=== PATIENT | female | born 1955 | race Caucasian/White ===

== ENCOUNTER → 2016-12-31 | Day surgery (SDC) | payer OTHER, BC ==
--- NOTE | 2017-01-01 12:09 | PATH ---
Surgical Pathology Report Patient Name: VICKI BROOKS [facility]. Rec. #: [id number] /Age/Gender: 1955 (Age: 61) / F Account: [id number] Location: [facility] RADIOLOGY U Taken: 12/31/2016 Received: 12/31/2016 Reported: 01/01/2017 Physicians: Dex Nolasco M.D. Specimen(s) Received RIGHT BREAST BIOPSY 9 O'CLOCK Clinical History Newly diagnosed right breast cancer, suspicious enhancement 9:00 right Final Diagnosis RIGHT BREAST, 9:00, NEEDLE CORE BIOPSY: BENIGN BREAST TISSUE WITH FIBROCYSTIC CHANGES INCLUDING USUAL DUCTAL HYPERPLASIA, (UDH), COLUMNAR CELL CHANGE, STROMAL FIBROSIS, DUCTAL DILATATION, AND CYSTIC APOCRINE METAPLASIA. RARE CALCIFICATIONS ARE IDENTIFIED WITHIN BENIGN DUCTAL STRUCTURES. FOCAL MEDIAL CALCIFICATION OF BLOOD VESSELS IS PRESENT. Electronically Signed Dimitri Pizano M.D. Gross Description Received in formalin labeled "right breast," is a 2.5 x 2.3 x 0.3 cm aggregate of multiple somers-yellow, irregular to cylindrical portions of fibroadipose tissue. The formalin is filtered and the specimen is entirely submitted in one cassette. Time to formalin fixation: 2 minutes Total formalin fixation time: Approximately 6 hours. 12/31/201612/31/2016
== END | disposition home or self-care (01) ==
LOC: FRADUS-SUR 10:36
PROVIDERS: ATTEND Surgery Surgical Oncology
PROC: 0HBT3ZX Excision of Right Breast, Percutaneous Approach, Diagnostic (ICD-10-PCS; principal; 2016-12-31)
DX: N60.11 Diffuse cystic mastopathy of right breast (principal); N63.11 Unspecified lump in the right breast, upper outer quadrant; N60.81 Other benign mammary dysplasias of right breast; N60.31 Fibrosclerosis of right breast; N64.89 Other specified disorders of breast
CPT/HCPCS: 19085; 88305-TC; A4648; C1887; G0206-TC

== ENCOUNTER 2017-01-20 09:25 | Day surgery (SDC) | payer BC, OTHER ==
--- NOTE | 2017-01-14 16:45 | HP ---
Admitting History and Physical - Primary Care Physician PCP: Vernon Emmanuel - Admission Chief Complaint: Right breast cancer History of Present Illness: 61 year old postmenapausal female with strong family H/O breast cancer. She underwent mammogram and US 11/2016 that showed unchanged calcifications and US showed 5 mm mass right breast 11:00. US core showed moderately differentiated invasive ductal carcinoma. Bilateral breast MRI showed newly diagnosed right breast cancer and suspicious enhancement 9:00 right breast need targeted US. 12/2016 targeted US showed nonvisualization of enhancement. MRI core bx advised. Right breast MRI core biopsy showed benign fibrocystic changes. She has H?O CLL therefore genetic testing can only be done on a skin punch biopsy. History Source: Patient Limitations to Obtaining History: No Limitations - Past Medical History Pulmonary: Yes: Asthma (borderline asthma and bronchospasm), Other Heme/Onc: Yes: Other (CLL) ENT: Yes: Other (tinnitus hearing loss) Endocrine: Yes: Other (thyroid nodules) - Smoking History Smoking history: Never smoked Have you smoked in the past 12 months: No - Alcohol/Substance Use Hx Alcohol Use: Yes (weekly) Home Medications - Allergies Allergies/Adverse Reactions: Allergies Allergy/AdvReac Type Severity Reaction Status Date / Time No Known Allergies Allergy Verified 12/17/16 15:22 - Home Medications Home Medications (free text): esctalopram ,spiriva,asmanex Family Disease History - Family Disease History Family Disease History: CA: Father (CRC leukemia 76), Sister (DCIS at 41 BRCA neg) Physical Examination Constitutional: Yes: Well Nourished Breast(s): Yes: Other (ptotic C cups breasts resolving echymosis right upper aspect of breast from core bxs. no palpable densities in either breast or adenopathy bilaterally) Problem List - Problems (1) Breast cancer, right breast Code(s): C50.911 - MALIGNANT NEOPLASM OF UNSP SITE OF RIGHT FEMALE BREAST Qualifiers: Breast location: upper outer quadrant of breast Patient sex: female Assessment/Plan Right wide excision with mammogram needle localization sentenel node biopsy , lymphoscintogram possible axillary node dissection
[2017-01-15 11:31] VITALS: BMI 28.2
[2017-01-20] MEDS ORDERED: KETOROLAC TROMETHAMINE 30 MG/1 ML VIAL IVPUSH PRN (12:57)
[2017-01-20] MEDS ORDERED: ONDANSETRON 4 MG/2 ML VIAL IVPUSH PRN (12:57)
[2017-01-20] MEDS ORDERED: DEXTROSE 5%-0.45% SALINE 1,000 ML IV SCH (13:00)
[2017-01-20] MEDS ORDERED: PROPOFOL 20 ML ONE (13:15)
[2017-01-20] MEDS ORDERED: MIDAZOLAM HCL 2 MG/2 ML SINGLE DOSE VIAL ONE ×2 (13:15)
[2017-01-20] MEDS ORDERED: LIDOCAINE HCL 1%, 10 MG/ML (20ML VIAL) ONE (13:18)
[2017-01-20] MEDS ORDERED: ISOSULFAN BLUE 10 MG/ML VIAL SQ ONE (13:55)
[2017-01-20] MEDS ORDERED: DESFLURANE GAS 240 ML BOTTLE IH ONE (15:21)
[2017-01-20] MEDS ORDERED: oxyCODONE HCL 5 MG TABLET PO PRN ×2 (15:41)
[2017-01-20] MEDS ORDERED: MEPERIDINE HCL CARPU-JECT 25 MG/1 ML DISP.SYRIN ONE (15:41)
[2017-01-20] MEDS ORDERED: MEPERIDINE HCL CARPU-JECT 25 MG/1 ML DISP.SYRIN IVPUSH ONE (15:42)
[2017-01-20] MEDS ORDERED: LACTATED RINGERS SOLUTION 1,000 ML IV SCH (15:45)
[2017-01-20 16:50] VITALS: TEMP 97.5
[2017-01-20 18:01] VITALS: BP 112/65; PULSE 81
--- NOTE | 2017-01-21 08:07 | OP ---
DATE OF OPERATION: 01/20/2017 PREOPERATIVE DIAGNOSIS: Right breast upper outer quadrant breast cancer with strong family history. PROCEDURE PERFORMED: Right breast partial mastectomy with mammographic needle localization and right axillary sentinel lymph node biopsy with 3 x 4-cm tissue transfer, as well as lower left hip 5-mm skin punch biopsy for genetic testing. PRIMARY SURGEON: Melissa Emmanuel MD MANUFACTURING SYSTEMS ENGINEER: CEDRIC Schaefer ANESTHESIA: General laryngeal mask airway anesthesia. COMPLICATIONS: There were no complications. INDICATIONS: Briefly, the patient is a 61-year-old , postmenopausal white female of [place] descent. She has a strong family history with her niece who had breast cancer at age 41. She has a paternal cousin who had thyroid cancer at age 47 and then breast cancer at age 48. Another paternal cousin had uterine cancer at age 51 and another paternal cousin had lung cancer at age 42. A paternal aunt had rectal cancer at age 69, and her father had leukemia and colon cancer. The patient herself does have a history of CLL. She was found to have calcifications toward the upper outer aspect of the right breast on screening mammography in November 2016, with a 5-mm density seen on ultrasound of the right breast at the 11 o'clock region. An ultrasound-guided core biopsy performed in November 2016 showed a well-differentiated invasive duct cancer which was ER-CO positive and HER-II/CLAUS negative, with a FISH ratio of 1.0. MRI showed the localized cancer in the right breast upper outer quadrant. There was also a right breast 9 o'clock finding, which turned out to be core biopsied and was benign. She was scheduled for right breast partial mastectomy with sentinel lymph node biopsy. Due to her history of CLL, we could not send peripheral blood for genetic testing, and a skin punch biopsy was recommended by the genetic testing [facility], so this was added to the procedure as well. DESCRIPTION OF PROCEDURE: The patient was brought in for the procedure on January 20, 2017. She first underwent a needle localization and lymph node scintigraphy at [facility] and then was brought to the [facility] holding area. In the holding area, a site verification was made and informed consent was obtained. She was brought into the operating room and laid on the OR table in the supine position. Venodynes were placed on the lower extremities. Prior to induction she received 1 g of Ancef prior to incision. The right breast was sterilely prepped and draped in the usual fashion, with the wire prepped in the field. Lymphazurin Blue 3 mL was injected intradermally and peritumorly around the needle localization site. We first performed a 5-mm core punch biopsy on the skin over the left hip. This was done by prepping the skin with Betadine and then sterilely, using a 5-mm punch biopsy instrument, took a punch biopsy of the skin. This was sent to the genetic testing company directly. The skin was closed using interrupted 3-0 nylon sutures, and a dressing was applied. At this point the right breast was approached for the partial mastectomy, and was sterilely prepped and draped in the usual fashion. The sentinel lymph node biopsy was first performed. An incision was made just below the hair-bearing area of the right axilla and dissection was undertaken. Three blue nodes were easily found in the level I and level II regions of the right axilla. The first sentinel node had a 10-second gamma count of 2568; it was blue. The second sentinel node had a 10-second gamma count of 5122; it was blue. The third sentinel node in the level II region had a 10-second gamma count of 524, and was blue. No other distinctly blue or hot nodes were found. Background count after removal of these 3 nodes was 721. Hemostasis was achieved and the axillary wound was closed using interrupted 2-0 plain suture, an interrupted 3-0 deep dermal Vicryl suture and a running 4-0 subcuticular Biosyn suture to close the skin. A wide excision was then undertaken around the needle localization wire. A small ellipse of skin was removed with the specimen. Wide excision was undertaken all the way down to the pectoralis major muscle. The specimen was removed without difficulty, with the wire in the middle of the specimen. The specimen was oriented with a long lateral suture and a short superior suture. Specimen radiograph showed removal of the clip in the middle of the specimen. Separate margins were then taken on the superior, inferior, medial, lateral and deep aspects, with sutures marking the biopsy cavity side. Again, hemostasis was achieved, and the wound was copiously irrigated. The breast tissue was undermined to allow for a 3 x 5-cm tissue transfer closure. The breast tissue was reapproximated using 2-0 plain suture. The skin was then closed using interrupted 3-0 deep dermal Vicryl suture and a running 4-0 subcuticular Biosyn suture. Mastisol and Steri-Strips were applied over the wounds and a compressive dressing placed over this. She was placed in a surgical bra postoperatively. She tolerated the procedure well, without difficulty, and the laryngeal mask airway tube was removed at the end of the case. She will be recovered in the postanesthesia care unit and then discharged home the same day once discharge criteria are met. She is to follow up in the office in 1 week for formal wound pathology check. MELISSA EMMANUEL M.D. [id number]
--- NOTE | 2017-01-23 17:50 | PATH ---
Surgical Pathology Report Patient Name: VICKI BROOKS [facility]. Rec. #: [id number] /Age/Gender: 1955 (Age: 61) / F Account: [id number] Location: [facility] AMBULATORY Taken: 01/20/2017 Received: 01/20/2017 Reported: 01/27/2017 Physicians: Vernon Emmanuel M.D. Specimen(s) Received A: RIGHT BREAST WIDE EXCISION B: RIGHT AXILLARY SENTINEL NODE #1 C: RIGHT AXILLARY SENTINEL NODE #2 D: RIGHT AXILLARY SENTINEL NODE #3 E: RIGHT BREAST POSTERIOR MARGIN F: RIGHT BREAST MEDIAL MARGIN G: RIGHT BREAST LATERAL MARGIN H: RIGHT BREAST SUPERIOR MARGIN I: RIGHT BREAST INFERIOR MARGIN Clinical History Invasive CA, previous core biopsy with cancer Final Diagnosis A. breast, right, wide excision: Invasive ductal carcinoma, moderately differentiated (tubule score: 3/3, nuclear grade: 2/3, mitotic score: 1/3; total Jose score: 6/9). (See note) Invasive carcinoma measures 8 mm in greatest dimension, microscopically. Ductal carcinoma in situ (DCIS), cribriform, papillary and micropapillary type, intermediate nuclear grade is present admixed with invasive carcinoma and focally away from it. Surgical margins uninvolved by invasive carcinoma; invasive carcinoma is at 6 mm the closest (superior) margin. DCIS is focally close to (< 1 mm) the medial margin. see specimen E-I forfinal margins. Skin is present and is uninvolved by carcinoma. No lymphovascular invasion is identified. Prior biopsy site changes are present. Remaining breast tissue shows proliferative fibrocystic changes and columnar cell change. Pathologic stage (ptnm): pT1b pN0. see also invasive carcinoma case summary below. Note: The carcinoma shows strong membranous positivity for E-Cadherin (performed at [facility]), which supports ductal phenotype. B. lymph node, right axillary sentinel #1, excision: One lymph node, negative for metastatic carcinoma (0/1).. C. lymph node, right axillary sentinel #2, excision: One lymph node, negative for metastatic carcinoma (0/1). D. lymph node, right axillary sentinel #3, excision: One lymph node, negative for metastatic carcinoma (0/1). E. breast, right, POSTERIOR margin, excision: BENIGN FIBROADIPOSE TISSUE AND SKELETAL MUSCLE. F. breast, right, medial margin, excision: Focal ductal carcinoma in situ (DCIS), intermediate nuclear grade, present close to (< 1 mm) the new margin. G. breast, right, lateral margin, excision: Benign breast tissue. H. breast, right, superior margin, excision: Benign breast tissue. I. breast, right, inferior margin, excision: Ductal carcinoma in situ (DCIS), intermediate nuclear grade, involving radial scar. DCIS is close to (< 1 mm) THE NEW MARGIN AT A FEW FOCI. Comments Breast Invasive Carcinoma: Surgical Pathology Cancer Case Summary Based on AJCC/UICC TNM, 7th edition Procedure _X_ Excision with image-guided localization Lymph Node Sampling _X_ Alta lymph node(s) Specimen Laterality _X_ Right Tumor Size: Size of Largest Invasive Carcinoma: 8 mm Tumor Focality _X_ Single focus of invasive carcinoma Macroscopic and Microscopic Extent of Tumor Skin _X_ Invasive carcinoma does not invade into the dermis or epidermis Nipple _X_ Not applicable (excisions less than total mastectomy) Ductal Carcinoma In Situ (DCIS) _X_ DCIS is present _X_ as a minor component (< 25% of tumor) Histologic Type of Invasive Carcinoma : _X_ Invasive carcinoma of no special type (ductal, not otherwise specified) Histologic Grade: (Jose Histologic Score) Tubular Differentiation _X_ Score 3 Nuclear Pleomorphism _X_ Score 2 Mitotic Rate _X_ Score 1 Overall Grade _X_ Grade 2: scores of 6 or 7 (moderately differentiated) Margins _X_ Margins uninvolved by invasive carcinoma Distance from closest margin: 6 mm from superior margin in wide excision A. Final superior margin H Is negative for carcinoma. _X_ Margin(s) close to (< 1 mm) DCIS: medial (F) & inferior (I) Lymph-Vascular Invasion _X_ Not identified Lymph Nodes Total number of lymph nodes examined (sentinel and nonsentinel): 3 Number of sentinel lymph nodes examined: 3 Number of lymph nodes with macrometastases ( > 2 mm): 0 Number of lymph nodes with micrometastases (>0.2 mm to 2 mm and/or >200cells):0 Number of lymph nodes with isolated tumor cells (=0.2 mm and =200 cells): 0 Extranodal Extension _X_ Not applicable Pathologic Staging (pTNM) Primary Tumor (Invasive Carcinoma): pT1b Regional Lymph Nodes (pN): pN0 (sn) Biomarker Studies Results of ER and VA studies performed on this specimen (block A1) at [facility] are as follows: ER (clone [id number] mouse monoclonal antibody by [employer]): > 95 % nuclear staining with strong intensity (Positive). VA (clone16 mouse monoclonal antibody by [employer]): ~2 % nuclear staining with moderate intensity (Positive). Results of Her2 (IHC) & Ki-67 studies performed on this specimen (block A1 ) at [place], [place] ( [id number]) are as follows: Her2 IHC (EP3 from [employer], formerly known as [id number], using Gonzalez Polymer Refine detection kit): 0 (Negative) Ki67: < 5% (Low proliferative index). Positive and negative controls (internal if applicable) show appropriate results. Formalin fixation and cold ischemic times are within current ASCO/CAP recommendations for ER, VA and Her2 testing. Electronically Signed Vickie Adam M.D. Amendments Amended: 01/27/2017 Previous Signout Date: 01/23/2017 Comment: add results for part E Gross Description A. Received in formalin, labeled "right breast wide excision," is a 5.8 x 3.8 x 3.0 cm. somers-yellow, irregular, portion of fibroadipose tissue with a needle localization wire present. There is a short suture marking the superior aspect and a long suture marking the lateral aspect, per the surgeon. The anterior surface displays a 3.0 x 0.4 cm somers, elliptical, unremarkable portion of skin. The specimen is inked as follows: Superior blue; inferior green; lateral red; medial yellow; deep black. The specimen is serially sectioned from anterior to deep. Sectioning reveals a 0.9 x 0.7 x 0.7 cm somers, firm mass at 0.5 cm from the superior margin and 0.9 cm from the medial margin. The remaining breast parenchyma displays multifocal dense white fibrous tissue. Service Or Work Dispatcher sections are submitted in 9 cassettes as follows: 1-2-one full-face section of mass each (each with superior and medial margins); 8-1-oeceduoevd fibrous tissue with superior and medial margins; 6-7-fibrous tissue with inferior and lateral margins; 8-deep margin; 9-skin. Time to formalin fixation: 4 minutes Total formalin fixation time: Approximately 27 hours. B. Received in formalin labeled "right axillary sentinel node #1," is a 0.8 x 0.7 x 0.5 cm somers, irregular lymph node with attached fat. The specimen is bisected and entirely submitted in one cassette. C. Received in formalin labeled "right axillary sentinel node #2," is a 0.5 x 0.4 x 0.3 cm somers, irregular lymph node with attached fat. The specimen is submitted in toto in one cassette. D. Received in formalin labeled "right axillary sentinel node #3," is a 1.0 x 0.6 x 0.3 cm somers, irregular lymph node with attached fat. The specimen is submitted in toto in one cassette. E. Received in formalin labeled "right breast posterior margin," is a 1.0 x 0.9 x 0.4 cm irregular portion of fibroadipose tissue with a suture marking the biopsy cavity side, per the surgeon. The new margin is inked green and the specimen is serially sectioned. The specimen is entirely submitted in 2 cassettes. F. Received in formalin labeled "right breast medial margin," is a 1.4 x 1.2 x 0.5 cm irregular portion of fibroadipose tissue with a suture marking the biopsy cavity side, per the surgeon. The new margin is inked green and the specimen is serially sectioned. The specimen is entirely submitted in 2 cassettes. G. Received in formalin labeled "right breast lateral margin," is a 1.9 x 1.6 x 1.0 cm irregular portion of fibroadipose tissue with a suture marking the biopsy cavity side, per the surgeon. The new margin is inked green and the specimen is serially sectioned. The specimen is entirely submitted in 2 cassettes. H. Received in formalin labeled "right breast superior margin," is a 2.7 x 1.6 x 1.0 cm irregular portion of fibroadipose tissue with a suture marking the biopsy cavity side, per the surgeon. The new margin is inked green and the specimen is serially sectioned. The specimen is entirely submitted in 3 cassettes. I. Received in formalin labeled "right breast inferior margin," is a 2.2 x 1.8 x 0.7 cm irregular portion of fibroadipose tissue with a suture marking the biopsy cavity side, per the surgeon. The new margin is inked green and the specimen is serially sectioned. The specimen is entirely submitted in 4 cassettes. 01/21/2017 saudi01/21/2017
== END 2017-01-20 18:35 | disposition home or self-care (01) ==
LOC: FASU 09:25
PROVIDERS: ATTEND Surgery Surgical Oncology
PROC: 0HBT0ZZ Excision of Right Breast, Open Approach (ICD-10-PCS; principal; 2017-01-20 14:12)
PROC: 0JX60ZC Transfer Chest Subcutaneous Tissue and Fascia with Skin, Subcutaneous Tissue and Fascia, Open Approach (ICD-10-PCS; 2017-01-20 14:12)
PROC: 0HB7XZX Excision of Abdomen Skin, External Approach, Diagnostic (ICD-10-PCS; 2017-01-20 14:12)
DX: C50.411 Malignant neoplasm of upper-outer quadrant of right female breast (principal); C91.10 Chronic lymphocytic leukemia of B-cell type not having achieved remission
CPT/HCPCS: 19281; 78195-TC; 88307-TC; 88342-TC; 94760; A9541

== ENCOUNTER 2017-02-12 13:47 | Day surgery (SDC) | payer BC, OTHER ==
--- NOTE | 2017-02-05 10:10 | HP ---
Admitting History and Physical - Primary Care Physician PCP: Vernon Emmanuel - Admission Chief Complaint: right breast cancer History of Present Illness: 61 yo female S/P right breast WE on 01/20/2017 who was noted to have positive medial and inferior margins. Patient is presenting for reexcision of these margins. History Source: Patient Limitations to Obtaining History: No Limitations - Past Medical History Pulmonary: Yes: Asthma (borderline asthma and bronchospasm), Other Heme/Onc: Yes: Other (CLL) ENT: Yes: Other (tinnitus hearing loss) Endocrine: Yes: Other (thyroid nodules) - Past Surgical History Additional Past Surgical History: right breast WE with snbx 01/20/2017 - Smoking History Smoking history: Never smoked Have you smoked in the past 12 months: No - Alcohol/Substance Use Hx Alcohol Use: Yes (WINE WITH MEALS) Home Medications - Allergies Allergies/Adverse Reactions: Allergies Allergy/AdvReac Type Severity Reaction Status Date / Time No Known Allergies Allergy Verified 12/17/16 15:22 - Home Medications Home Medications: Ambulatory Orders Escitalopram Oxalate [Lexapro -] 5 mg PO ASDIR 01/15/17 Esomeprazole Magnesium [Nexium 24Hr] 40 mg PO DAILY PRN 01/15/17 Mometasone Furoate [Asmanex 110Mcg -] 1 inh IH DAILY 01/15/17 Tiotropium [place] [Spiriva] 1 inh PO DAILY 01/15/17 Diphenhydramine HCl [Benadryl Capsule -] 25 mg PO HS PRN 01/20/17 Oxycodone HCl/Acetaminophen [Percocet 5-325 mg Tablet] 1 - 2 tab PO Q6H PRN #30 tab MDD 6 01/20/17 Family Disease History - Family Disease History Family Disease History: CA: Father (CRC leukemia 76), Sister (DCIS at 41 BRCA neg) Other Family History: niece-breast cancer at 41. paternal cousin-breast cancer at 48. paternal cousin- breast and thyroid cancer. paternal cousin-uterine cancer at 55. paternal aunt-rectal cancer at 69 Physical Examination Constitutional: Yes: Well Nourished, Calm Breast(s): Yes: Right (right breast incisions are clean without discharge or erythema) Problem List - Problems (1) Breast cancer, right breast Code(s): C50.911 - MALIGNANT NEOPLASM OF UNSP SITE OF RIGHT FEMALE BREAST Qualifiers: Breast location: upper outer quadrant of breast Patient sex: female Assessment/Plan right breast reexcsion of positive margins
[2017-02-09 12:58] VITALS: BMI 28.2
[2017-02-12] MEDS ORDERED: ACETAMINOPHEN 325 MG TABLET (FP) ONE (14:28)
[2017-02-12] MEDS ORDERED: LIDOCAINE HCL 1%, 10 MG/ML (20ML VIAL) ONE (14:51)
[2017-02-12] MEDS ORDERED: BUPIVACAINE HCL/PF 2.5 MG/ML - 30 ML VIAL IJ ONE (15:22)
[2017-02-12] MEDS ORDERED: MIDAZOLAM HCL 2 MG/2 ML SINGLE DOSE VIAL ONE (16:07)
[2017-02-12] MEDS ORDERED: ONDANSETRON 4 MG/2 ML VIAL IVPUSH PRN ×2 (16:11→16:48)
[2017-02-12] MEDS ORDERED: KETOROLAC TROMETHAMINE 30 MG/1 ML VIAL IVPUSH PRN (16:11)
[2017-02-12] MEDS ORDERED: PROPOFOL 20 ML ONE ×2 (16:12)
[2017-02-12] MEDS ORDERED: DEXTROSE 5%-0.45% SALINE 1,000 ML IV SCH (16:15)
[2017-02-12] MEDS ORDERED: ONDANSETRON 4 MG/2 ML VIAL ONE ×2 (16:22→17:41)
[2017-02-12] MEDS ORDERED: ceFAZolin SODIUM 1 GM VIAL ONE (16:22)
[2017-02-12] MEDS ORDERED: DEXAMETHASONE SOD PHOSPHATE 4 MG/1 ML VIAL ONE (16:22)
[2017-02-12] MEDS ORDERED: oxyCODONE HCL 5 MG TABLET PO PRN (16:48)
[2017-02-12] MEDS ORDERED: PROMETHAZINE HCL 25 MG/1 ML VIAL IVPUSH PRN (16:48)
[2017-02-12] MEDS ORDERED: KETOROLAC TROMETHAMINE 30 MG/1 ML VIAL ONE (17:37)
[2017-02-12 19:35] VITALS: BP 107/67; PULSE 66; TEMP 97.9
--- NOTE | 2017-02-13 20:30 | OP ---
DATE OF OPERATION: 02/12/2017 PREOPERATIVE DIAGNOSIS: Right breast cancer, upper outer quadrant with positive margins. POSTOPERATIVE DIAGNOSIS: Right breast cancer, upper outer quadrant with positive margins, await permanent section. PROCEDURE: Right breast wide excision with re-excision of medial and inferior margins. PRIMARY SURGEON: Melissa Emmanuel MD WASHING MACHINE REPAIRER: CEDRIC Schaefer ANESTHESIA: General laryngeal mask airway anesthesia. COMPLICATIONS: None. Briefly, the patient is a 61-year-old, G1, P0, postmenopausal white female of [place] descent. She has a family history with her niece who had breast cancer at age 41, as well as a paternal cousin who had breast cancer at age 48. Another paternal cousin had uterine cancer at 55. The patient was found to have a density towards the upper outer aspect of the right breast on mammography in November 2016. Ultrasound showed a 5-mm density in the right breast 11 o'clock region. An ultrasound core biopsy showed a well-differentiated invasive duct cancer which was ER/IN positive and HER2 negative. MRI showed some other areas of enhancements in the right breast 9 o'clock region. An MR biopsy was negative. She ended up undergoing a right breast partial mastectomy and sentinel lymph node biopsy on January 20, 2017, and final pathology showed an 8-mm moderately-differentiated ductal cancer with 3 negative nodes. She did have DCIS less than 1 mm from the medial and inferior margins. Re-excision was recommended. She is brought now on February 12, 2017, for re-excision of medial and inferior margins. Site verification was made, and informed consent was obtained in the holding area at [place]. DESCRIPTION OF PROCEDURE: She was brought into the operating room and laid on the OR table in a supine position. Venodynes were placed on the lower extremities prior to induction. She underwent general laryngeal mask airway anesthesia and was given a gram of Ancef prior to incision. The right breast was sterilely prepped and draped in the usual fashion. The prior wide excision was reopened, and the previous excision cavity was easily found. Separate margins were taken on the medial and inferior aspect with a separate further medial margin taken as well. All specimens were oriented with a suture marking the biopsy cavity side and sent to Pathology in formalin. Hemostasis was achieved. The breast parenchyma was then reapproximated using a 4 x 3 cm tissue transfer closure. The breast tissue was undermined and reapproximated using a 2-0 plain suture. The wound was then closed using interrupted 3-0 deep dermal Vicryl suture and a running 4-0 subcuticular Biosyn suture. Mastisol and Steri-Strips were applied over the wound with a compressive dressing placed over this. She was placed in a surgical bra postoperatively. The patient tolerated the procedure well without difficulty, and laryngeal mask airway tube was removed at the end of the case. She will be recovered in the postanesthesia care unit and will be discharged home the same day once discharge criteria are met. She is to follow up in the office in 1 week for formal wound and pathology check. All sponge and needle counts were correct at the end of the case, and estimated blood loss was minimal. MELISSA EMMANUEL M.D. [id number]
--- NOTE | 2017-02-16 10:51 | PATH ---
Surgical Pathology Report Patient Name: VICKI BROOKS [facility]. Rec. #: [id number] /Age/Gender: 1955 (Age: 61) / F Account: [id number] Location: [facility] Taken: 02/13/2017 Received: 02/13/2017 Reported: 02/16/2017 Physicians: Veronn Emmanuel M.D. Specimen(s) Received A: RIGHT BREAST INFERIOR MARGIN B: RIGHT BREAST MEDIAL MARGIN C: RIGHT BREAST FURTHER MEDIAL MARGIN Clinical History Invasive previous wide excision with positive margins Final Diagnosis A. RIGHT BREAST, INFERIOR MARGIN, EXCISION: DUCTAL CARCINOMA IN SITU (DCIS), INTERMEDIATE NUCLEAR GRADE, PAPILLARY PATTERN, MEASURING 2 MM IN GREATEST DIMENSION AND PRESENT IN ONE OF 6 SECTIONS. DCIS IS LESS THAN 1 MM FROM THE INKED MARGIN. REMAINING BREAST TISSUE WITH FIBROCYSTIC CHANGES INCLUDING USUAL DUCTAL HYPERPLASIA (UDH), COLUMNAR CELL CHANGE, STROMAL FIBROSIS, AND DUCTAL DILATATION. FAT NECROSIS AND FIBROSIS CONSISTENT WITH PREVIOUS EXCISION SITE PRESENT. B. RIGHT BREAST, MEDIAL MARGIN, EXCISION: BENIGN BREAST TISSUE WITH FAT NECROSIS AND FIBROSIS CONSISTENT WITH PREVIOUS EXCISION SITE. C. RIGHT BREAST, FURTHER MEDIAL MARGIN, EXCISION: BENIGN BREAST TISSUE WITH FAT NECROSIS AND FIBROSIS CONSISTENT WITH PREVIOUS EXCISION SITE. Comment: See prior specimen [id number]. Electronically Signed Dimitri Pizano M.D. Gross Description A. Received in formalin labeled "right breast inferior margin," is a 3.8 x 2.6 x 1.1 cm irregular portion of fibroadipose tissue with a suture marking the biopsy cavity side, per the surgeon. The new margin is inked blue and the specimen is serially sectioned. The specimen is entirely and totally submitted in 6 cassettes. B. Received in formalin labeled "right breast medial margin," is a 2.3 x 1.6 x 0.9 cm irregular portion of fibroadipose tissue with a suture marking the biopsy cavity side, per the surgeon. The new margin is inked blue and the specimen is serially sectioned. The specimen is entirely and sequentially submitted in 3 cassettes. C. Received in formalin labeled "right breast further medial margin," is a 2.6 x 1.8 x 0.9 cm irregular portion of fibroadipose tissue with a suture marking the biopsy cavity side, per the surgeon. The new margin is inked blue and the specimen is serially sectioned. The specimen is entirely and sequentially submitted in 4 cassettes. 02/13/2017 saudi02/13/2017
== END 2017-02-12 19:50 | disposition home or self-care (01) ==
LOC: FASU 13:47
PROVIDERS: ATTEND Surgery Surgical Oncology
PROC: 0HBT0ZZ Excision of Right Breast, Open Approach (ICD-10-PCS; principal; 2017-02-12 16:25)
DX: C50.411 Malignant neoplasm of upper-outer quadrant of right female breast (principal); D05.11 Intraductal carcinoma in situ of right breast; N64.1 Fat necrosis of breast
CPT/HCPCS: 88307-TC; 94760

== ENCOUNTER 2017-02-26 10:16 | Day surgery (SDC) | payer BC, OTHER ==
[2017-02-23 10:45] VITALS: BMI 28.2
--- NOTE | 2017-02-23 16:24 | HP ---
Admitting History and Physical - Primary Care Physician PCP: Vernon Emmanuel - Admission Chief Complaint: Right breast cancer S/P wide excision with positive inferior margin History of Present Illness: 61 year old female S/P right breast wide excision and reexcision for a 8mm invasive ductal carcinoma . She had DCIS less than a mm from medial and inferior margin. Re excision performed 02/13/2017 cleared the medial margin but the inferior margin continued to show DCIS less than a mm from margin. History Source: Patient Limitations to Obtaining History: No Limitations - Past Medical History Pulmonary: Yes: Asthma (borderline asthma and bronchospasm), Other Heme/Onc: Yes: Other (CLL) ENT: Yes: Other (tinnitus hearing loss) Endocrine: Yes: Other (thyroid nodules) - Past Surgical History Additional Past Surgical History: Right breast wide excision sentenel node biopsy and reexcision for positive medial and inferior margins 01/2017 and 02/2017. - Smoking History Smoking history: Never smoked Have you smoked in the past 12 months: No - Alcohol/Substance Use Hx Alcohol Use: Yes (WINE WITH MEALS) Home Medications - Allergies Allergies/Adverse Reactions: Allergies Allergy/AdvReac Type Severity Reaction Status Date / Time No Known Allergies Allergy Verified 02/12/17 14:06 - Home Medications Home Medications: Ambulatory Orders Escitalopram Oxalate [Lexapro -] 5 mg PO ASDIR 01/15/17 Esomeprazole Magnesium [Nexium 24Hr] 40 mg PO DAILY PRN 01/15/17 Mometasone Furoate [Asmanex 110Mcg -] 1 inh IH DAILY 01/15/17 Tiotropium [place] [Spiriva] 1 inh PO DAILY 01/15/17 Diphenhydramine HCl [Benadryl Capsule -] 25 mg PO HS PRN 01/20/17 Family Disease History - Family Disease History Family Disease History: CA: Father (CRC leukemia 76), Sister (DCIS at 41 BRCA neg) Physical Examination Constitutional: Yes: Well Nourished Breast(s): Yes: Other (Healed incision right breast and axilla no signs of infection) Problem List - Problems (1) Breast cancer, right breast Code(s): C50.911 - MALIGNANT NEOPLASM OF UNSP SITE OF RIGHT FEMALE BREAST Qualifiers: Breast location: upper outer quadrant of breast Patient sex: female Assessment/Plan Re excision of right inferior margin
[2017-02-26] MEDS ORDERED: LIDOCAINE HCL 1%, 10 MG/ML (20ML VIAL) ONE (11:18)
[2017-02-26] MEDS ORDERED: BUPIVACAINE HCL/PF 2.5 MG/ML - 30 ML VIAL IJ ONE (11:19)
[2017-02-26] MEDS ORDERED: ONDANSETRON 4 MG/2 ML VIAL IVPUSH PRN (11:37)
[2017-02-26] MEDS ORDERED: KETOROLAC TROMETHAMINE 30 MG/1 ML VIAL IVPUSH PRN (11:37)
[2017-02-26] MEDS ORDERED: DEXTROSE 5%-0.45% SALINE 1,000 ML IV SCH (11:45)
[2017-02-26] MEDS ORDERED: LIDOCAINE HCL 1%, 10 MG/ML (50 mL VIAL) IJ ONE (12:05)
[2017-02-26] MEDS ORDERED: BUPIVACAINE HCL/PF 0.25% (2.5MG/ML) 10 ML VIAL IJ ONE (12:38)
[2017-02-26] MEDS ORDERED: ACETAMINOPHEN 500 MG TABLET (FP) PO PRN (12:50)
[2017-02-26] MEDS ORDERED: LACTATED RINGERS SOLUTION 1,000 ML IV SCH (13:00)
[2017-02-26 13:17] VITALS: TEMP 97.8
[2017-02-26 15:30] VITALS: BP 110/60; PULSE 64
--- NOTE | 2017-02-27 11:10 | OP ---
DATE OF OPERATION: 02/26/2017 PREOPERATIVE DIAGNOSIS: Right breast cancer upper outer quadrant. POSTOPERATIVE DIAGNOSIS: Right breast cancer upper outer quadrant. PROCEDURE: Re-excision of margins for right breast cancer. PRIMARY SURGEON: Vernon Emmanuel MD ACID STRENGTH INSPECTOR: CEDRIC Schaefer COMPLICATIONS: None. ANESTHESIA: General anesthesia. HISTORY: Briefly, the patient is a 61-year-old postmenopausal white female of [place] descent. She has a strong family history with her niece who had breast cancer at age 41, and she also has a paternal cousin had breast cancer at age 48. A paternal cousin had uterine cancer. Another paternal cousin had lung cancer. The patient was found to have a cancer towards the upper outer aspect of the right breast on mammography and ultrasound, and core biopsy in November 2016 showed a caud-wy-mmnhhzqhtw differentiated invasive duct cancer, which was ER/IA positive and HER2 negative. MRI showed a separate area of enhancement in the right breast 9 o'clock region, which was biopsied and benign. She underwent a right breast partial mastectomy and sentinel lymph node biopsy on November 20, 2016 showing an 8-mm moderately differentiated invasive duct cancer with 3 negative nodes. She did have a positive medial and inferior margin and had to have these re-excised on February 13, 2017, and the medial margin turned out to be negative, but again, the inferior margin was less than 1 mm with DCIS. She was given the option of re-excision, which I recommended versus mastectomy and eventually chose to have re-excision. She was brought in today on February 26, 2017 for re-excision of inferior margin. DESCRIPTION OF PROCEDURE: The patient was brought in to Ambulatory Surgery, and in the holding area, site verification was made, and informed consent was obtained. She was brought into the operating room and laid on the OR table in the supine position. Venodynes were placed on the lower extremities. The right breast was sterilely prepped and draped in the usual fashion. She was given a gram of Ancef prior to the incision. She was given propofol for general anesthesia, and local anesthesia with 1% lidocaine was given around the previous wide excision site. The previous excision was reopened with a small ellipse of scar tissue and skin removed from the skin on the wide excision site. Dissection was undertaken into the previous excision cavity, and the inferior margin was easily found. This was grasped using an Aime clamp, and the inferior margin was shaved using the cautery. The margin was completely excised with a suture marking the biopsy cavity side. Hemostasis was achieved, and the wound was copiously irrigated. At this point, the breast tissue was, again, underminded somewhat to allow for an appropriate cosmetic closure. The breast tissue was reapproximated using 2-0 plain suture. The skin was closed using interrupted 3-0 deep dermal Vicryl suture and a running 4-0 subcuticular Biosyn suture. Mastisol and Steri-Strips were applied over the wound with compressive dressing placed over this. The patient tolerated the procedure well without difficulty and was awake and alert without the procedure and will be recovered and discharged home the same day once discharge criteria are met. All sponge and needle counts are correct at the end of the case, and estimated blood loss was minimal. Dex [id number]
--- NOTE | 2017-03-03 15:38 | PATH ---
Surgical Pathology Report Patient Name: VICKI BROOKS [facility]. Rec. #: [id number] /Age/Gender: 1955 (Age: 61) / F Account: [id number] Location: [facility] Taken: 02/26/2017 Received: 02/26/2017 Reported: 03/03/2017 Physicians: Vernon Emmanuel M.D. Specimen(s) Received RIGHT BREAST RE:EXCISION Clinical History Re-excision for margins on inferior aspect Final Diagnosis BREAST, RIGHT, RE- EXCISION: FOCAL ATYPICAL DUCTAL HYPERPLASIA (ADH) AND FIBROCYSTIC CHANGES INCLUDING USUAL DUCTAL HYPERPLASIA (UDH) AND CYSTIC APOCRINE METAPLASIA, SMALL INTRADUCTAL PAPILLOMA AND SMALL RADIAL SCAR. NO RESIDUAL DUCTAL CARCINOMA IN SITU (DCIS) IS IDENTIFIED. PRIOR BIOPSY SITE CHANGES ARE PRESENT. Electronically Signed Vicike Adam M.D. Gross Description Received in formalin labeled "right breast reexcision," is a 4.4 x 2.7 x 0.8 cm irregular portion of fibroadipose tissue with a suture marking the biopsy cavity side, per the surgeon. The new margin is inked blue and the specimen is serially sectioned. The specimen is entirely and sequentially submitted in 6 cassettes. 02/27/201702/27/2017
== END 2017-02-26 15:20 | disposition home or self-care (01) ==
LOC: FASU 10:16
PROVIDERS: ATTEND Surgery Surgical Oncology
PROC: 0HBT0ZX Excision of Right Breast, Open Approach, Diagnostic (ICD-10-PCS; principal; 2017-02-26 12:05)
DX: C50.411 Malignant neoplasm of upper-outer quadrant of right female breast (principal)
CPT/HCPCS: 88307-TC